=== PATIENT | female | born 1960 | race Caucasian/White ===

== ENCOUNTER 2023-06-25 06:29 | Day surgery (SDC) | payer OTHER, SELFPAY ==
[2023-06-25 09:27] VITALS: BMI 25.3
[2023-06-25 09:41] VITALS: BMI 25.3
[2023-06-25 09:42] VITALS: BP 131/74
[2023-06-25] MEDS: NORMOSOL-R 1000 IV (09:45)
[2023-06-25 10:47] VITALS: BP 92/50
[2023-06-25 10:58] VITALS: BP 103/61
[2023-06-25 11:15] VITALS: BP 120/62
[2023-06-25] MEDS: Pyridium 200 MG PO (11:36)
== END 2023-06-25 11:40 | disposition home or self-care (01) ==
LOC: SDS 06:29
PROVIDERS: ATTENDING PHYSICIAN Urology
DX: N36.44 Muscular disorders of urethra (principal); N32.0 Bladder-neck obstruction; N31.8 Other neuromuscular dysfunction of bladder
CPT/HCPCS: 52287; J0585

== ENCOUNTER 2023-09-24 06:47 | Day surgery (SDC) | payer OTHER, SELFPAY ==
[2023-09-20 09:07] LABS: Hematocrit 38.5 % (37.0-47.0); Hemoglobin 13.2 g/dL (12.0-16.0); Mean Corp Hgb Conc. 34.3 g/dL (33.0-37.0); Mean Corpuscular Hgb 32.4 pg (27.0-31.0); Mean Corpuscular Volume 94.6 fL (81.0-99.0); Mean Platelet Volume 10.9 fL (7.4-10.4); Platelet Count 276 10^3/uL (130-400); Red Blood Cell Count 4.07 10^6/uL (4.20-5.40); White Blood Cell Count 9.4 10^3/uL (4.8-10.8)
[2023-09-20 09:55] VITALS: BMI 26.4
[2023-09-20 12:03] LABS: Blood Urea Nitrogen 11 mg/dl (7-17); Calcium 9.5 mg/dl (8.4-10.2); Carbon Dioxide 27 mmol/L (22-30); Chloride 100 mmol/L (98-107); Estimated Creatinine Clearance 58 ml/min; Glucose 113 mg/dl (70-99); Sodium 136 mmol/L (135-145); eGFR > 60.00
[2023-09-24 10:01] VITALS: BP 125/69; BMI 26.4
[2023-09-24] MEDS: NORMOSOL-R 1000 IV (10:08)
[2023-09-24 11:28] VITALS: BP 84/51
[2023-09-24 11:30] VITALS: BP 95/56
[2023-09-24 11:45] VITALS: BP 103/58
[2023-09-24 12:00] VITALS: BP 113/56
[2023-09-24 12:16] VITALS: BP 109/64
== END 2023-09-24 12:28 | disposition home or self-care (01) ==
LOC: SDS 06:47
PROVIDERS: ATTENDING PHYSICIAN Urology; FAMILY PHYSICIAN Emergency Medicine
DX: N31.9 Neuromuscular dysfunction of bladder, unspecified (principal); R33.9 Retention of urine, unspecified; N36.44 Muscular disorders of urethra
CPT/HCPCS: 52283; 36415; 80048; 85027; 93005; J0585

== ENCOUNTER → 2023-10-04 16:42 | Outpatient (REF) | payer OTHER, SELFPAY | LOC: WDC 16:42 | PROVIDERS: ATTENDING PHYSICIAN Obstetrics & Gynecology Gynecology; FAMILY PHYSICIAN Emergency Medicine | DX: Z12.31 Encounter for screening mammogram for malignant neoplasm of breast (principal) | CPT/HCPCS: 77063; 77067 ==

== ENCOUNTER → 2023-10-17 15:01 | Outpatient (REF) | payer OTHER, SELFPAY | LOC: HWRAD 15:01 | PROVIDERS: ATTENDING PHYSICIAN Urology; FAMILY PHYSICIAN Emergency Medicine | DX: R10.9 Unspecified abdominal pain (principal); N31.9 Neuromuscular dysfunction of bladder, unspecified; R33.9 Retention of urine, unspecified | CPT/HCPCS: 76770 ==

== ENCOUNTER → 2023-10-22 15:06 | Outpatient (REF) | payer OTHER, SELFPAY | LOC: HWRAD 15:06 | PROVIDERS: ATTENDING PHYSICIAN Urology; FAMILY PHYSICIAN Emergency Medicine | DX: R93.89 Abnormal findings on diagnostic imaging of other specified body structures (principal); N31.9 Neuromuscular dysfunction of bladder, unspecified; R27.8 Other lack of coordination | CPT/HCPCS: 74176 ==

== ENCOUNTER 2023-12-17 06:44 | Day surgery (SDC) | payer OTHER, SELFPAY ==
[2023-12-17] VITALS (7 sets, daily range): BP systolic 141–153; BP diastolic 71–77; BMI 26.2
--- NOTE | 2023-12-17 14:09 | W.SUR.PREOP ---
Pre-Operative Surgical Note
-
I have examined this patient prior to the performance of the scheduled procedure.
The patient's condition is unchanged from the time of the current History and
Physical and the patient is able to undergo the scheduled procedure.
H/o left hydroureteronephrosis
H/o neurogenic bladder w/ DSD
Preop checklist signed on chart.
Sugical consent signed on chart.
LEFT laterality marked.
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
To OR for cysto + left URS/biopsy/RGP/stent placement.
D/w patient.
== END 2023-12-17 16:29 | disposition home or self-care (01) ==
LOC: SDS 06:44
PROVIDERS: ATTENDING PHYSICIAN Surgery
DX: C66.2 Malignant neoplasm of left ureter (principal); N13.30 Unspecified hydronephrosis
CPT/HCPCS: 52332; 88305; 74420; 76000; 88112; A4300; C1713; C1758; C1769; C1894; C2617

== ENCOUNTER → 2024-01-17 15:33 | Outpatient (REF) | payer OTHER, SELFPAY | LOC: RCS 15:33 | PROVIDERS: ATTENDING PHYSICIAN Internal Medicine Hematology & Oncology; FAMILY PHYSICIAN Emergency Medicine | DX: C66.2 Malignant neoplasm of left ureter (principal) | CPT/HCPCS: 36561; 76937; 77001; 93306; 93356; 99152; 99153; C1788 ==

== ENCOUNTER → 2024-01-18 08:07 | Outpatient (REF) | payer OTHER, SELFPAY ==
[2024-01-18] VITALS (7 sets, daily range): BP systolic 64–155; BP diastolic 70–85
[2024-01-18] MEDS: ANCEF 10 IV (08:39)
== END ==
LOC: RADI 08:07
PROVIDERS: ATTENDING PHYSICIAN Internal Medicine Hematology & Oncology
DX: C66.2 Malignant neoplasm of left ureter (principal)
CPT/HCPCS: 36561; 76937; 77001; 99152; 99153; C1788

== ENCOUNTER → 2024-02-04 13:02 | Outpatient (REF) | payer OTHER, SELFPAY ==
[2024-02-04 13:27] VITALS: BP 128/78; BP_SYST 73
== END ==
LOC: RADI 13:02
PROVIDERS: ATTENDING PHYSICIAN Internal Medicine Hematology & Oncology; FAMILY PHYSICIAN Emergency Medicine
DX: T82.524A Displacement of infusion catheter, initial encounter (principal); Y82.8 Other medical devices associated with adverse incidents
CPT/HCPCS: 36598

== ENCOUNTER → 2024-06-04 12:15 | Outpatient (REF) | payer OTHER, SELFPAY ==
[2024-06-04 12:45] VITALS: BP 154/74; BP_SYST 70
[2024-06-04 13:32] VITALS: BP 139/92; BP_SYST 72
[2024-06-04 13:45] VITALS: BP 139/92
== END ==
LOC: RADI 12:15
PROVIDERS: ATTENDING PHYSICIAN Internal Medicine Hematology & Oncology; FAMILY PHYSICIAN Emergency Medicine
DX: Z45.2 Encounter for adjustment and management of vascular access device (principal); C66.2 Malignant neoplasm of left ureter
CPT/HCPCS: 36590; 77001

== ENCOUNTER 2024-07-11 06:21 | Day surgery (SDC) | payer OTHER, SELFPAY ==
[2024-06-27 08:58] LABS: Hematocrit 35.1 % (37.0-47.0); Hemoglobin 11.8 g/dL (12.0-16.0); Mean Corp Hgb Conc. 33.6 g/dL (33.0-37.0); Mean Corpuscular Hgb 32.5 pg (27.0-31.0); Mean Corpuscular Volume 96.7 fL (81.0-99.0); Mean Platelet Volume 10.4 fL (7.4-10.4); Platelet Count 259 10^3/uL (130-400); Red Blood Cell Count 3.63 10^6/uL (4.20-5.40); Red Cell Dist. Width 13.9 % (11.5-14.5)
[2024-06-27 13:19] VITALS: BMI 24.3
[2024-06-27 13:42] LABS: Blood Urea Nitrogen 20 mg/dl (7-17); Calcium 9.4 mg/dl (8.4-10.2); Carbon Dioxide 27 mmol/L (22-30); Chloride 103 mmol/L (98-107); Estimated Creatinine Clearance 42 ml/min; Glucose 107 mg/dl (70-99); Potassium 4.5 mmol/L (3.5-5.1); Sodium 141 mmol/L (135-145); eGFR 45.63
[2024-07-11] VITALS (9 sets, daily range): BP systolic 101–130; BP diastolic 57–71; BMI 24.3
[2024-07-11] MEDS: CYSVIEW KIT 100 MG INTRAVES (12:43)
[2024-07-11] MEDS: NORMOSOL-R/PLASMALYTE-A 1000 IV (13:05)
[2024-07-11] MEDS: Pyridium 200 MG PO (15:15)
[2024-07-11] MEDS: DETROL LA 2 MG PO (15:16)
== END 2024-07-11 16:15 | disposition home or self-care (01) ==
LOC: SDS 06:21
PROVIDERS: ATTENDING PHYSICIAN Surgery; FAMILY PHYSICIAN Emergency Medicine
DX: D49.4 Neoplasm of unspecified behavior of bladder (principal); N30.00 Acute cystitis without hematuria; N30.20 Other chronic cystitis without hematuria; Z85.54 Personal history of malignant neoplasm of ureter
CPT/HCPCS: 52234; C9738; 88307; 36415; 80048; 85027; 93005; A9589

== ENCOUNTER → 2024-07-18 13:42 | Outpatient (REF) | payer OTHER, SELFPAY ==
--- NOTE | 2024-07-18 13:57 | W.PN.UPDATE ---
Update Note
Progress Note Update
63 yo female comes for port site check today. There is a small vicryl suture at the lateral end of the incision that was removed with sterile suture removal set. The site is well healed with no signs of infection or abscess
== END ==
LOC: RADI 13:42
PROVIDERS: ATTENDING PHYSICIAN Physician Assistant; FAMILY PHYSICIAN Emergency Medicine
DX: Z45.2 Encounter for adjustment and management of vascular access device (principal)

== ENCOUNTER → 2024-10-06 16:40 | Outpatient (REF) | payer OTHER, SELFPAY | LOC: WDC 16:40 | PROVIDERS: ATTENDING PHYSICIAN Obstetrics & Gynecology Gynecology; FAMILY PHYSICIAN Emergency Medicine | DX: Z12.31 Encounter for screening mammogram for malignant neoplasm of breast (principal) | CPT/HCPCS: 77063; 77067 ==